=== PATIENT | female | born 1950 | race Caucasian/White ===

== ENCOUNTER 2017-06-03 09:19 | Emergency (ER) | payer MEDICARE, OTHER ==
[2017-06-03] MEDS: morphine 4 MG/ML VIAL IV (10:15)
[2017-06-03] MEDS: ONDANSETRON 4 MG INJ IV (10:15)
[2017-06-03 10:52] LABS: ADD MAN DIFF? NO
[2017-06-03 11:11] LABS: ABNORMAL IP MESSAGE 1; BASOPHILS % 0.4 % (0.0-2.0); EOSINOPHILS # 0.1 10^3/ul (0.0-0.5); EOSINOPHILS % 0.7 % (0.0-7.0); HEMATOCRIT 32.1 % (37.0-47.0); HEMOGLOBIN 9.9 g/dl (12.0-16.0); LYMPHOCYTES # 0.3 10^3/ul (0.8-2.9); LYMPHOCYTES % 2.5 % (15.0-51.0); MEAN CORPUSCULAR HGB CONC 30.8 g/dl (32.0-37.0); MEAN CORPUSCULAR VOLUME 90.7 fl (82.0-101.0); MEAN PLATELET VOLUME 11.9 fl (7.4-10.4); MONOCYTE # 0.6 10^3/ul (0.3-0.9); MONOCYTES % 5.5 % (0.0-11.0); NEUTROPHIL # 9.6 10^3/ul (1.6-7.5); NEUTROPHILS % 90.4 % (39.0-77.0); PLATELET COUNT 289 10^3/UL (140-415); RED BLOOD COUNT 3.54 10^6/ul (4.20-5.40); RED CELL DISTRIBUTION WIDTH 19.2 % (11.5-14.5)
[2017-06-03 11:11] LABS: WHITE BLOOD COUNT 10.6 10^3/ul (4.8-10.8)
[2017-06-03 11:12] LABS: POSITIVE DIFF @See below
[2017-06-03 11:14] LABS: INR 1.24; PROTIME 15.8 Sec (11.9-14.9); PT RATIO 1.2
[2017-06-03 11:15] LABS: ALANINE AMINOTRANSFERASE 13 IU/L (13-69); ALBUMIN 4.6 g/dl (3.3-4.9); ALBUMIN/GLOBULIN RATIO 1.04; ALKALINE PHOSPHATASE 170 IU/L (42-121); ANION GAP 21 (8-16); BLOOD UREA NITROGEN 32 mg/dl (7-20); CALCIUM 9.5 mg/dl (8.4-10.2); CARBON DIOXIDE 30 mmol/L (21-31); CHLORIDE 98 mmol/L (97-110); CREATININE 4.52 mg/dl (0.44-1.00); GLUCOSE 142 mg/dl (70-220); PARTIAL THROMBOPLASTIN TIME 31.6 Sec (25.0-35.0); POTASSIUM 4.8 mmol/L (3.5-5.1); SODIUM 144 mmol/L (135-144)
[2017-06-03 11:21] LABS: ASPARTATE AMINO TRANSFERASE 17 IU/L (15-46)
== END 2017-06-03 15:20 | disposition home or self-care (01) ==
LOC: E/R 09:19
DX: J18.9 Pneumonia, unspecified organism (principal); I12.0 Hypertensive chronic kidney disease with stage 5 chronic kidney disease or end stage renal disease; N18.6 End stage renal disease; R51 Headache; Z99.2 Dependence on renal dialysis
CPT/HCPCS: 36415; 70450; 71045; 71250; 80053; 84484; 85025; 85610; 85730; 93005; 96374; 96375; 99285-25

== ENCOUNTER 2017-07-03 11:50 | Inpatient (IN) | payer MEDICARE, OTHER ==
[2017-07-03] MEDS: ONDANSETRON 4 MG INJ IV (12:43)
[2017-07-03] MEDS: morphine 2 MG INJ IV (12:44)
[2017-07-03 12:56] LABS: ADD MAN DIFF? NO
[2017-07-03 13:02] LABS: ABNORMAL IP MESSAGE 1; BASOPHILS % 0.5 % (0.0-2.0); EOSINOPHILS # 0.2 10^3/ul (0.0-0.5); EOSINOPHILS % 2.1 % (0.0-7.0); HEMATOCRIT 30.6 % (37.0-47.0); HEMOGLOBIN 9.3 g/dl (12.0-16.0); LYMPHOCYTES # 0.4 10^3/ul (0.8-2.9); LYMPHOCYTES % 4.7 % (15.0-51.0); MEAN CORPUSCULAR HGB CONC 30.4 g/dl (32.0-37.0); MEAN CORPUSCULAR VOLUME 88.7 fl (82.0-101.0); MEAN PLATELET VOLUME 11.7 fl (7.4-10.4); MONOCYTE # 0.6 10^3/ul (0.3-0.9); MONOCYTES % 7.2 % (0.0-11.0); NEUTROPHIL # 6.9 10^3/ul (1.6-7.5); NEUTROPHILS % 85.3 % (39.0-77.0); PLATELET COUNT 291 10^3/UL (140-415); POSITIVE DIFF @See below; RED BLOOD COUNT 3.45 10^6/ul (4.20-5.40); RED CELL DISTRIBUTION WIDTH 17.8 % (11.5-14.5)
[2017-07-03 13:02] LABS: WHITE BLOOD COUNT 8.1 10^3/ul (4.8-10.8)
[2017-07-03 13:18] LABS: ALANINE AMINOTRANSFERASE 17 IU/L (13-69); ALBUMIN 3.9 g/dl (3.3-4.9); ALBUMIN/GLOBULIN RATIO 0.88; ALKALINE PHOSPHATASE 111 IU/L (42-121); ANION GAP 28 (8-16); ASPARTATE AMINO TRANSFERASE 13 IU/L (15-46); BLOOD UREA NITROGEN 53 mg/dl (7-20); CALCIUM 8.8 mg/dl (8.4-10.2); CARBON DIOXIDE 17 mmol/L (21-31); CHLORIDE 101 mmol/L (97-110); CREATININE 6.66 mg/dl (0.44-1.00); GLUCOSE 148 mg/dl (70-220); LIPASE 46 U/L (23-300); POTASSIUM 5.1 mmol/L (3.5-5.1); SODIUM 141 mmol/L (135-144); TOTAL PROTEIN 8.3 g/dl (6.1-8.1)
[2017-07-03 13:31] LABS: INR 1.54; PROTIME 18.8 Sec (11.9-14.9); PT RATIO 1.5
[2017-07-03 13:32] LABS: PARTIAL THROMBOPLASTIN TIME 32.1 Sec (25.0-35.0); TROPONIN-I 0.029 ng/ml (0.00-0.12)
[2017-07-03 14:37] LABS: LACTIC ACID 1.3 mmol/L (0.5-2.0)
[2017-07-03] MEDS: CEFEPIME 1GM/50 ML (PMX) 50 ML IVPB (14:54)
[2017-07-03] MEDS: VANCOMYCIN 1 GM (PMX) 250 ML IVPB (15:30)
[2017-07-03] MEDS ORDERED: NA PHOSPHATE/BIPHOS 133 ML ENEMA PR (19:00)
[2017-07-03] MEDS ORDERED: ONDANSETRON 4 MG TAB PO (19:00)
[2017-07-03] MEDS ORDERED: DOCUSATE SODIUM 100 MG CAP PO (19:00)
[2017-07-03] MEDS: LACTULOSE 30ML CUP PO (19:22)
[2017-07-03] MEDS: NA PHOSPHATE/BIPHOS 133 ML ENEMA PR (19:22)
[2017-07-03 20:00] LABS: LACTIC ACID 1.2 mmol/L (0.5-2.0)
[2017-07-03] MEDS: ALBUTEROL/IPRATROPIUM (NEB) 3 ML AMP NEB (20:24)
[2017-07-03] MEDS: AZITHROMYCIN 500MG/NS (PMX) 250 ML IV (21:40)
[2017-07-03] MEDS: NIFEdipine (XL) 60 MG TAB PO (21:40)
[2017-07-03] MEDS: DOCUSATE SODIUM 100 MG CAP PO (21:40)
[2017-07-03] MEDS: FAMOTIDINE 20 MG TAB PO (21:45)
[2017-07-03] MEDS: NACL 0.9% 3 ML SYG IV (21:46)
[2017-07-03] MEDS: HYDROCODONE/APAP (5/325) TAB PO (21:46)
[2017-07-04 00:41] LABS: ADD MAN DIFF? NO
[2017-07-04 00:42] LABS: WHITE BLOOD COUNT 9.3 10^3/ul (4.8-10.8)
[2017-07-04 00:42] LABS: BASOPHILS % 0.2 % (0.0-2.0); EOSINOPHILS # 0.2 10^3/ul (0.0-0.5); EOSINOPHILS % 2.2 % (0.0-7.0); HEMATOCRIT 27.7 % (37.0-47.0); HEMOGLOBIN 8.5 g/dl (12.0-16.0); LYMPHOCYTES # 0.6 10^3/ul (0.8-2.9); LYMPHOCYTES % 6.7 % (15.0-51.0); MEAN CORPUSCULAR HEMOGLOBIN 27.6 pg (29.0-33.0); MEAN CORPUSCULAR HGB CONC 30.7 g/dl (32.0-37.0); MEAN CORPUSCULAR VOLUME 89.9 fl (82.0-101.0); MEAN PLATELET VOLUME 11.4 fl (7.4-10.4); MONOCYTE # 0.3 10^3/ul (0.3-0.9); MONOCYTES % 3.3 % (0.0-11.0); NEUTROPHILS % 86.5 % (39.0-77.0); PLATELET COUNT 290 10^3/UL (140-415); RED BLOOD COUNT 3.08 10^6/ul (4.20-5.40); RED CELL DISTRIBUTION WIDTH 17.9 % (11.5-14.5)
[2017-07-04 00:45] LABS: AADO2 Arterial 304.3 mmHg (7.0-24.0); Allen Test ACCEPTAB; Arterial Base Excess -10.3 mmol/L (-3.0-3); Arterial COHb 0.8 % (0.0-3.0); Arterial Fraction of Oxyhgb 97.9 % (93.0-99.0); Arterial HCO3 15.7 mmol/L (22.0-26.0); Arterial MetHb 0.3 % (0.0-1.5); Arterial Total Hemglobin 8.9 g/dl (12.0-18.0); Arterial pCO2 35.4 mmhg (35-45); MODE VENT - AC; Site Right Radial
[2017-07-04 01:04] LABS: ANION GAP 24 (8-16); BLOOD UREA NITROGEN 55 mg/dl (7-20); CARBON DIOXIDE 18 mmol/L (21-31); CHLORIDE 101 mmol/L (97-110); CREATININE 7.08 mg/dl (0.44-1.00); GLUCOSE 159 mg/dl (70-220); SODIUM 138 mmol/L (135-144)
[2017-07-04 01:06] LABS: MAGNESIUM 2.8 mg/dl (1.7-2.5); PHOSPHORUS 8.6 mg/dl (2.5-4.9)
[2017-07-04 01:11] LABS: LACTIC ACID 4.9 mmol/L (0.5-2.0)
[2017-07-04] MEDS: ALBUTEROL/IPRATROPIUM (NEB) 3 ML AMP NEB ×5 (01:38→14:19)
[2017-07-04 03:26] LABS: ADD MAN DIFF? NO
[2017-07-04] MEDS: LORAZEPAM 2 MG INJ IV ×2 (03:44→07:52)
[2017-07-04 03:48] LABS: INR 1.84; PROTIME 21.7 Sec (11.9-14.9); PT RATIO 1.7
[2017-07-04 03:49] LABS: WHITE BLOOD COUNT 11.3 10^3/ul (4.8-10.8)
[2017-07-04 03:49] LABS: ABNORMAL IP MESSAGE 1; BASOPHILS % 0.2 % (0.0-2.0); EOSINOPHILS % 0.2 % (0.0-7.0); HEMATOCRIT 26.3 % (37.0-47.0); HEMOGLOBIN 8.4 g/dl (12.0-16.0); LYMPHOCYTES # 0.2 10^3/ul (0.8-2.9); MEAN CORPUSCULAR HEMOGLOBIN 27.8 pg (29.0-33.0); MEAN CORPUSCULAR HGB CONC 31.9 g/dl (32.0-37.0); MEAN CORPUSCULAR VOLUME 87.1 fl (82.0-101.0); MEAN PLATELET VOLUME 11.8 fl (7.4-10.4); MONOCYTE # 0.8 10^3/ul (0.3-0.9); MONOCYTES % 6.7 % (0.0-11.0); NEUTROPHIL # 10.2 10^3/ul (1.6-7.5); NEUTROPHILS % 90.5 % (39.0-77.0); PLATELET COUNT 265 10^3/UL (140-415); RED BLOOD COUNT 3.02 10^6/ul (4.20-5.40); RED CELL DISTRIBUTION WIDTH 17.8 % (11.5-14.5)
[2017-07-04 03:51] LABS: POSITIVE DIFF @See below
[2017-07-04 03:53] LABS: ALANINE AMINOTRANSFERASE 17 IU/L (13-69); ALBUMIN 3.5 g/dl (3.3-4.9); ALBUMIN/GLOBULIN RATIO 0.89; ALKALINE PHOSPHATASE 126 IU/L (42-121); ANION GAP 28 (8-16); ASPARTATE AMINO TRANSFERASE 17 IU/L (15-46); BLOOD UREA NITROGEN 57 mg/dl (7-20); CALCIUM 8.6 mg/dl (8.4-10.2); CARBON DIOXIDE 16 mmol/L (21-31); CHLORIDE 102 mmol/L (97-110); CREATININE 7.01 mg/dl (0.44-1.00); GLUCOSE 137 mg/dl (70-220); POTASSIUM 5.3 mmol/L (3.5-5.1); SODIUM 141 mmol/L (135-144); TOTAL PROTEIN 7.4 g/dl (6.1-8.1)
[2017-07-04] MEDS ORDERED: PANTOPRAZOLE (EC) 40 MG TAB PO (07:05)
[2017-07-04] MEDS: LEVETIRACETAM 500 MG (PMX) 100 ML IVPB ×2 (08:00→15:10)
[2017-07-04] MEDS: NA POLYST SULFON 15 GM/60 ML BTL PO (09:00)
[2017-07-04] MEDS: MIDAZOLAM (DRIP) 50 mg/50 mL 50 ML IV ×2 (09:20→16:56)
[2017-07-04] MEDS: ASPIRIN 81 MG TAB PO (09:20)
[2017-07-04] MEDS: SEVELAMER CARBONATE 2.4 GM PKT PO ×3 (09:20→18:40)
[2017-07-04] MEDS: DOCUSATE SODIUM 10 MG/ML (10ML CUP) NGT ×2 (09:31→21:13)
[2017-07-04 10:45] LABS: AADO2 Arterial 167.9 mmHg (7.0-24.0); Arterial Base Excess -6.7 mmol/L (-3.0-3); Arterial Blood Gas Oxygen Sat 94.4 mmHG (95.0-98.0); Arterial COHb 1.2 % (0.0-3.0); Arterial HCO3 17.5 mmol/L (22.0-26.0); Arterial MetHb 0.3 % (0.0-1.5); Arterial Total Hemglobin 8.4 g/dl (12.0-18.0); Arterial pCO2 29.9 mmhg (35-45); MODE VENT - AC; Site Right Brachial
[2017-07-04] MEDS ORDERED: DIVALPROEX (EC) 500 MG TAB PO (13:00)
[2017-07-04] MEDS: VALPROIC ACID LIQUID CUP 250 MG/5 ML CUP GTB ×2 (13:06→21:13)
[2017-07-04] MEDS: ACETAMINOPHEN 325 MG TAB PO (13:07)
[2017-07-04] MEDS: CEFEPIME 1GM/50 ML (PMX) 50 ML IVPB (13:08)
[2017-07-04] MEDS: ALBUTEROL HFA 8 GM INHALER INH ×2 (17:00→21:43)
[2017-07-04] MEDS: PHENYTOIN 1,000 MG in SOD CHLORIDE 0.9% 100 ML IV (18:35)
[2017-07-04] MEDS: NA BICARBONATE 8.4% 50 ML SYG IV (19:22)
[2017-07-04] MEDS: ALBUTEROL 0.083% (NEB) 2.5 MG/3 ML AMP HHN (19:29)
[2017-07-04 19:53] LABS: HEPATITIS B SURFACE ANTIGEN NEGATIVE (NEGATIVE)
[2017-07-04 19:54] LABS: ALANINE AMINOTRANSFERASE 18 IU/L (13-69); ALBUMIN/GLOBULIN RATIO 0.83; ALKALINE PHOSPHATASE 103 IU/L (42-121); ANION GAP 25 (8-16); ASPARTATE AMINO TRANSFERASE 20 IU/L (15-46); BLOOD UREA NITROGEN 63 mg/dl (7-20); CALCIUM 10.5 mg/dl (8.4-10.2); CARBON DIOXIDE 17 mmol/L (21-31); CHLORIDE 103 mmol/L (97-110); CREATININE 7.63 mg/dl (0.44-1.00); GLUCOSE 143 mg/dl (70-220); POTASSIUM 5.2 mmol/L (3.5-5.1); SODIUM 140 mmol/L (135-144); TOTAL PROTEIN 6.6 g/dl (6.1-8.1)
[2017-07-04 21:10] LABS: AADO2 Arterial 333.9 mmHg (7.0-24.0); Allen Test ACCEPTAB; Arterial Blood Gas Oxygen Sat 98.6 mmHG (95.0-98.0); Arterial COHb 0.3 % (0.0-3.0); Arterial Fraction of Oxyhgb 98.2 % (93.0-99.0); Arterial HCO3 17.9 mmol/L (22.0-26.0); Arterial MetHb 0.1 % (0.0-1.5); Arterial Total Hemglobin 8.3 g/dl (12.0-18.0); Arterial pCO2 28.9 mmhg (35-45); MODE VENT - AC; Site Right Radial
[2017-07-04] MEDS: LEVETIRACETAM 1000 MG (PMX) 100 ML IVPB (21:12)
[2017-07-04] MEDS: MEROPENEM 1 GM/50ML(PMX) 50 ML IVPB (21:12)
[2017-07-04] MEDS: AZITHROMYCIN 500MG/NS (PMX) 250 ML IV (21:12)
[2017-07-04] MEDS: PHENYTOIN (100 MG/4 ML) CUP NGT (21:13)
[2017-07-05] MEDS: ACETAMINOPHEN 325 MG TAB PO ×2 (00:30→06:00)
[2017-07-05] MEDS: ALBUTEROL HFA 8 GM INHALER INH ×6 (01:48→21:15)
[2017-07-05] MEDS: MIDAZOLAM (DRIP) 50 mg/50 mL 50 ML IV ×5 (06:00→23:59)
[2017-07-05 06:06] LABS: ADD MAN DIFF? NO
[2017-07-05 06:27] LABS: ABNORMAL IP MESSAGE 1; BASOPHILS % 0.1 % (0.0-2.0); HEMATOCRIT 25.2 % (37.0-47.0); HEMOGLOBIN 8.2 g/dl (12.0-16.0); LYMPHOCYTES # 0.3 10^3/ul (0.8-2.9); LYMPHOCYTES % 1.9 % (15.0-51.0); MEAN CORPUSCULAR HEMOGLOBIN 27.2 pg (29.0-33.0); MEAN CORPUSCULAR HGB CONC 32.5 g/dl (32.0-37.0); MEAN CORPUSCULAR VOLUME 83.7 fl (82.0-101.0); MEAN PLATELET VOLUME 11.9 fl (7.4-10.4); MONOCYTE # 0.9 10^3/ul (0.3-0.9); MONOCYTES % 5.7 % (0.0-11.0); NEUTROPHIL # 14.3 10^3/ul (1.6-7.5); NEUTROPHILS % 91.7 % (39.0-77.0); PLATELET COUNT 309 10^3/UL (140-415); RED BLOOD COUNT 3.01 10^6/ul (4.20-5.40); RED CELL DISTRIBUTION WIDTH 17.7 % (11.5-14.5)
[2017-07-05 06:27] LABS: WHITE BLOOD COUNT 15.6 10^3/ul (4.8-10.8)
[2017-07-05 06:50] LABS: POSITIVE DIFF @See below
[2017-07-05 06:54] LABS: MAGNESIUM 2.7 mg/dl (1.7-2.5)
[2017-07-05 07:07] LABS: FREE THYROXINE INDEX (Calc) 3.34 ug/ml (0.65-3.89); T3 UPTAKE 49.8 % (23.5-40.5); T4 (THYROXINE) 6.7 ug/dl (5.5-11.0)
[2017-07-05 07:08] LABS: ALANINE AMINOTRANSFERASE 18 IU/L (13-69); ALBUMIN 3.3 g/dl (3.3-4.9); ALBUMIN/GLOBULIN RATIO 0.97; ALKALINE PHOSPHATASE 112 IU/L (42-121); ANION GAP 26 (8-16); ASPARTATE AMINO TRANSFERASE 17 IU/L (15-46); BLOOD UREA NITROGEN 68 mg/dl (7-20); CALCIUM 8.4 mg/dl (8.4-10.2); CARBON DIOXIDE 20 mmol/L (21-31); CHLORIDE 99 mmol/L (97-110); CREATININE 8.13 mg/dl (0.44-1.00); GLUCOSE 336 mg/dl (70-220); POTASSIUM 5.9 mmol/L (3.5-5.1); SODIUM 139 mmol/L (135-144); TOTAL PROTEIN 6.7 g/dl (6.1-8.1)
[2017-07-05 07:12] LABS: LACTIC ACID 2.5 mmol/L (0.5-2.0)
[2017-07-05 07:20] LABS: THYROID STIMULATING HORMONE 0.812 MIU/L (0.465-4.680)
[2017-07-05 08:17] LABS: ERYTHROCYTE SEDIMENTATION RATE 42 mm/Hr (0-30)
[2017-07-05] MEDS: SEVELAMER CARBONATE 2.4 GM PKT PO ×3 (08:56→18:21)
[2017-07-05] MEDS: VALPROIC ACID LIQUID CUP 250 MG/5 ML CUP GTB ×3 (08:57→21:05)
[2017-07-05] MEDS: PHENYTOIN (100 MG/4 ML) CUP NGT ×3 (08:57→21:04)
[2017-07-05] MEDS: DOCUSATE SODIUM 10 MG/ML (10ML CUP) NGT ×2 (08:57→21:04)
[2017-07-05] MEDS: ASPIRIN 81 MG TAB PO (08:59)
[2017-07-05] MEDS: FAMOTIDINE 20 MG TAB NGT (08:59)
[2017-07-05] MEDS: ACCU-CHEK XX ×4 (09:00→21:00)
[2017-07-05] MEDS: LEVETIRACETAM 1000 MG (PMX) 100 ML IVPB (09:00)
[2017-07-05] MEDS: AMLODIPINE 2.5 MG TAB NGT (09:00)
[2017-07-05] MEDS: LEVETIRACETAM 1500 MG (PMX) 100 ML IVPB ×2 (11:00→21:06)
[2017-07-05] MEDS: DIGOXIN 500 MCG INJ IV (12:36)
[2017-07-05 12:40] LABS: TROPONIN-I 0.128 ng/ml (0.00-0.12)
[2017-07-05] MEDS: LEVETIRACETAM 500 MG (PMX) 100 ML IVPB (14:01)
[2017-07-05] MEDS: CEFEPIME 1GM/50 ML (PMX) 50 ML IVPB (15:01)
[2017-07-05] MEDS ORDERED: GLUCAGON 1 MG INJ IM (16:30)
[2017-07-05] MEDS ORDERED: GLUCOSE GEL 15 GRAM TUBE PO ×2 (16:30)
[2017-07-05] MEDS ORDERED: GLUCOSE GEL 15 GRAM TUBE BUCCAL (16:30)
[2017-07-05] MEDS: LINAGLIPTIN 5 MG TABLET PO (18:21)
[2017-07-05] MEDS: INSULIN ASPART [NOVOLOG] 3 ML PEN SC ×2 (18:25→21:00)
[2017-07-05] MEDS: AZITHROMYCIN 500MG/NS (PMX) 250 ML IV (20:00)
[2017-07-05] MEDS: INSULIN GLARGINE [LANtus] 3 ML PEN SC (20:00)
[2017-07-05] MEDS: LORAZEPAM 0.5 MG TAB PO (23:55)
[2017-07-06] MEDS: INSULIN ASPART [NOVOLOG] 3 ML PEN SC ×6 (01:00→20:36)
[2017-07-06] MEDS: ALBUTEROL HFA 8 GM INHALER INH ×3 (01:00→08:33)
[2017-07-06] MEDS: ACCU-CHEK XX ×6 (01:42→20:27)
[2017-07-06] MEDS: HEPARIN 1000 UNITS/ML 10 ML INJ CATHETER (03:12)
[2017-07-06 03:33] LABS: ADD MAN DIFF? NO
[2017-07-06] MEDS: ALBUMIN HUMAN 25% 100 ML IV (03:57)
[2017-07-06 04:00] LABS: ANION GAP 21 (8-16); BLOOD UREA NITROGEN 36 mg/dl (7-20); CALCIUM 8.2 mg/dl (8.4-10.2); CARBON DIOXIDE 25 mmol/L (21-31); CHLORIDE 98 mmol/L (97-110); CREATININE 3.87 mg/dl (0.44-1.00); GLUCOSE 114 mg/dl (70-220); MAGNESIUM 2.2 mg/dl (1.7-2.5); PHOSPHORUS 3.9 mg/dl (2.5-4.9); SODIUM 140 mmol/L (135-144)
[2017-07-06 04:04] LABS: ABNORMAL IP MESSAGE 1; BASOPHILS % 0.2 % (0.0-2.0); EOSINOPHILS # 0.1 10^3/ul (0.0-0.5); EOSINOPHILS % 0.5 % (0.0-7.0); HEMATOCRIT 25.1 % (37.0-47.0); HEMOGLOBIN 8.6 g/dl (12.0-16.0); LYMPHOCYTES # 0.4 10^3/ul (0.8-2.9); LYMPHOCYTES % 2.3 % (15.0-51.0); MEAN CORPUSCULAR HEMOGLOBIN 27.8 pg (29.0-33.0); MEAN CORPUSCULAR HGB CONC 34.3 g/dl (32.0-37.0); MEAN CORPUSCULAR VOLUME 81.2 fl (82.0-101.0); MEAN PLATELET VOLUME 11.9 fl (7.4-10.4); MONOCYTE # 0.7 10^3/ul (0.3-0.9); NEUTROPHIL # 15.5 10^3/ul (1.6-7.5); NEUTROPHILS % 92.6 % (39.0-77.0); PLATELET COUNT 249 10^3/UL (140-415); RED BLOOD COUNT 3.09 10^6/ul (4.20-5.40); RED CELL DISTRIBUTION WIDTH 17.6 % (11.5-14.5)
[2017-07-06 04:04] LABS: WHITE BLOOD COUNT 16.7 10^3/ul (4.8-10.8)
[2017-07-06 04:08] LABS: POSITIVE DIFF @See below
[2017-07-06] MEDS: MIDAZOLAM (DRIP) 50 mg/50 mL 50 ML IV ×4 (05:39→20:24)
[2017-07-06 06:19] LABS: HEPATITIS B SURFACE ANTIBODY POSITIVE (NEGATIVE)
[2017-07-06] MEDS ORDERED: EPINEPHrine 0.1 MG/ML SYG (07:00)
[2017-07-06] MEDS ORDERED: CA CHLORIDE 10% 10 ML SYRINGE (07:00)
[2017-07-06 08:25] LABS: AADO2 Arterial 103.4 mmHg (7.0-24.0); Arterial Base Excess 0.7 mmol/L (-3.0-3); Arterial Blood Gas Oxygen Sat 94.9 mmHG (95.0-98.0); Arterial COHb 1.2 % (0.0-3.0); Arterial Fraction of Oxyhgb 93.5 % (93.0-99.0); Arterial HCO3 22.7 mmol/L (22.0-26.0); Arterial MetHb 0.3 % (0.0-1.5); Arterial Total Hemglobin 8.7 g/dl (12.0-18.0); Arterial pCO2 27.1 mmhg (35-45); MODE VENT - AC; Site Right Brachial
[2017-07-06 08:53] LABS: PHENYTOIN (DILANTIN) 5.9 ug/ml (10.0-20.0)
[2017-07-06] MEDS: AMLODIPINE 2.5 MG TAB NGT (09:00)
[2017-07-06] MEDS: FAMOTIDINE 20 MG TAB NGT (09:23)
[2017-07-06] MEDS: SEVELAMER CARBONATE 2.4 GM PKT PO ×3 (09:23→17:03)
[2017-07-06] MEDS: ASPIRIN 81 MG TAB PO (09:23)
[2017-07-06] MEDS: LINAGLIPTIN 5 MG TABLET PO (09:23)
[2017-07-06] MEDS: DOCUSATE SODIUM 10 MG/ML (10ML CUP) NGT ×2 (09:25→20:08)
[2017-07-06] MEDS: PHENYTOIN (100 MG/4 ML) CUP NGT ×4 (09:25→20:08)
[2017-07-06] MEDS: VALPROIC ACID LIQUID CUP 250 MG/5 ML CUP GTB ×3 (09:25→20:07)
[2017-07-06] MEDS: LEVETIRACETAM 1500 MG (PMX) 100 ML IVPB ×2 (09:37→20:08)
[2017-07-06] MEDS: CEFEPIME 1GM/50 ML (PMX) 50 ML IVPB (15:12)
[2017-07-06] MEDS: INSULIN GLARGINE [LANtus] 3 ML PEN SC (20:06)
[2017-07-06] MEDS: HEPARIN 5,000 UNIT/0.5 ML VIAL SC (20:36)
[2017-07-07] MEDS: INSULIN ASPART [NOVOLOG] 3 ML PEN SC ×6 (01:00→21:00)
[2017-07-07] MEDS: ACCU-CHEK XX ×6 (01:00→21:00)
[2017-07-07] MEDS: MIDAZOLAM (DRIP) 50 mg/50 mL 50 ML IV ×2 (01:18→05:32)
[2017-07-07] MEDS: DEXTROSE 50% 50 ML SYRINGE IV ×3 (05:11→11:58)
[2017-07-07] MEDS: LINAGLIPTIN 5 MG TABLET PO (09:00)
[2017-07-07] MEDS: LEVETIRACETAM 1500 MG (PMX) 100 ML IVPB ×2 (09:10→21:36)
[2017-07-07] MEDS: FAMOTIDINE 20 MG TAB NGT (09:21)
[2017-07-07] MEDS: ASPIRIN 81 MG TAB PO (09:22)
[2017-07-07] MEDS: DOCUSATE SODIUM 10 MG/ML (10ML CUP) NGT ×2 (09:22→21:29)
[2017-07-07] MEDS: SEVELAMER CARBONATE 2.4 GM PKT PO ×3 (09:22→17:16)
[2017-07-07] MEDS: VALPROIC ACID LIQUID CUP 250 MG/5 ML CUP GTB ×3 (09:22→23:30)
[2017-07-07] MEDS: PHENYTOIN (100 MG/4 ML) CUP NGT ×4 (09:23→21:29)
[2017-07-07] MEDS: HEPARIN 5,000 UNIT/0.5 ML VIAL SC ×2 (09:25→21:31)
[2017-07-07] MEDS: ACETAMINOPHEN 325 MG TAB PO (09:35)
[2017-07-07] MEDS: METOCLOPRAMIDE 10 MG INJ IV ×2 (12:01→17:16)
[2017-07-07] MEDS: CEFEPIME 1GM/50 ML (PMX) 50 ML IVPB (13:50)
[2017-07-07] MEDS: INSULIN GLARGINE [LANtus] 3 ML PEN SC (20:00)
[2017-07-08] MEDS: METOCLOPRAMIDE 10 MG INJ IV ×4 (00:34→17:13)
[2017-07-08] MEDS: INSULIN ASPART [NOVOLOG] 3 ML PEN SC ×6 (01:00→21:00)
[2017-07-08] MEDS: ACCU-CHEK XX ×6 (01:00→21:00)
[2017-07-08] MEDS: LORAZEPAM 2 MG INJ IV (07:52)
[2017-07-08 08:57] LABS: PHENYTOIN (DILANTIN) 4.8 ug/ml (10.0-20.0)
[2017-07-08] MEDS: LEVETIRACETAM 1500 MG (PMX) 100 ML IVPB ×2 (09:09→21:48)
[2017-07-08] MEDS: DOCUSATE SODIUM 10 MG/ML (10ML CUP) NGT ×2 (09:14→21:44)
[2017-07-08] MEDS: PHENYTOIN (100 MG/4 ML) CUP NGT ×4 (09:15→21:44)
[2017-07-08] MEDS: VALPROIC ACID LIQUID CUP 250 MG/5 ML CUP GTB ×2 (09:15→12:57)
[2017-07-08] MEDS: SEVELAMER CARBONATE 2.4 GM PKT PO ×3 (09:15→17:13)
[2017-07-08] MEDS: FAMOTIDINE 20 MG TAB NGT (09:16)
[2017-07-08] MEDS: LINAGLIPTIN 5 MG TABLET PO (09:16)
[2017-07-08] MEDS: ASPIRIN 81 MG TAB PO (09:16)
[2017-07-08] MEDS: HEPARIN 5,000 UNIT/0.5 ML VIAL SC ×2 (09:18→21:45)
[2017-07-08 10:21] LABS: ADD MAN DIFF? NO
[2017-07-08 10:22] LABS: WHITE BLOOD COUNT 11.4 10^3/ul (4.8-10.8)
[2017-07-08 10:22] LABS: ABNORMAL IP MESSAGE 1; BASOPHILS % 0.3 % (0.0-2.0); EOSINOPHILS # 0.2 10^3/ul (0.0-0.5); EOSINOPHILS % 2.1 % (0.0-7.0); HEMATOCRIT 23.8 % (37.0-47.0); HEMOGLOBIN 7.5 g/dl (12.0-16.0); LYMPHOCYTES # 0.2 10^3/ul (0.8-2.9); LYMPHOCYTES % 2.1 % (15.0-51.0); MEAN CORPUSCULAR HEMOGLOBIN 26.9 pg (29.0-33.0); MEAN CORPUSCULAR HGB CONC 31.5 g/dl (32.0-37.0); MEAN CORPUSCULAR VOLUME 85.3 fl (82.0-101.0); MEAN PLATELET VOLUME 12.4 fl (7.4-10.4); MONOCYTE # 0.7 10^3/ul (0.3-0.9); MONOCYTES % 6.3 % (0.0-11.0); NEUTROPHIL # 9.8 10^3/ul (1.6-7.5); NEUTROPHILS % 86.5 % (39.0-77.0); PLATELET COUNT 221 10^3/UL (140-415); POSITIVE DIFF @See below; RED BLOOD COUNT 2.79 10^6/ul (4.20-5.40)
[2017-07-08 10:41] LABS: ALANINE AMINOTRANSFERASE 14 IU/L (13-69); ALBUMIN 2.8 g/dl (3.3-4.9); ALKALINE PHOSPHATASE 114 IU/L (42-121); ANION GAP 23 (8-16); ASPARTATE AMINO TRANSFERASE 14 IU/L (15-46); BLOOD UREA NITROGEN 69 mg/dl (7-20); CALCIUM 8.2 mg/dl (8.4-10.2); CARBON DIOXIDE 22 mmol/L (21-31); CHLORIDE 98 mmol/L (97-110); CREATININE 7.06 mg/dl (0.44-1.00); GLUCOSE 103 mg/dl (70-220); POTASSIUM 5.5 mmol/L (3.5-5.1); SODIUM 137 mmol/L (135-144); TOTAL PROTEIN 6.3 g/dl (6.1-8.1)
[2017-07-08 14:23] LABS: IMMEDIATE SPIN CROSSMATCH 1 2
[2017-07-08] MEDS: CEFEPIME 1GM/50 ML (PMX) 50 ML IVPB (17:12)
[2017-07-08] MEDS: HEPARIN 1000 UNITS/ML 10 ML INJ CATHETER (17:59)
[2017-07-08] MEDS: INSULIN GLARGINE [LANtus] 3 ML PEN SC (21:50)
[2017-07-09] MEDS: METOCLOPRAMIDE 10 MG INJ IV ×4 (00:41→18:01)
[2017-07-09] MEDS: INSULIN ASPART [NOVOLOG] 3 ML PEN SC ×6 (01:00→20:14)
[2017-07-09] MEDS: ACCU-CHEK XX ×6 (01:00→20:14)
[2017-07-09] MEDS: VALPROIC ACID LIQUID CUP 250 MG/5 ML CUP GTB ×4 (01:48→21:00)
[2017-07-09] MEDS: PE/SHARK OIL/MO/PETROL 30 GM OINT PR (04:14)
[2017-07-09 05:23] LABS: ABNORMAL IP MESSAGE 1; ADD MAN DIFF? NO; BASOPHILS % 0.3 % (0.0-2.0); EOSINOPHILS # 0.2 10^3/ul (0.0-0.5); HEMATOCRIT 25.3 % (37.0-47.0); HEMOGLOBIN 8.2 g/dl (12.0-16.0); LYMPHOCYTES # 0.4 10^3/ul (0.8-2.9); LYMPHOCYTES % 2.9 % (15.0-51.0); MEAN CORPUSCULAR HGB CONC 32.4 g/dl (32.0-37.0); MEAN CORPUSCULAR VOLUME 83.2 fl (82.0-101.0); MEAN PLATELET VOLUME 12.8 fl (7.4-10.4); MONOCYTE # 0.8 10^3/ul (0.3-0.9); MONOCYTES % 6.5 % (0.0-11.0); NEUTROPHIL # 10.5 10^3/ul (1.6-7.5); PLATELET COUNT 212 10^3/UL (140-415); RED BLOOD COUNT 3.04 10^6/ul (4.20-5.40)
[2017-07-09 05:23] LABS: WHITE BLOOD COUNT 11.9 10^3/ul (4.8-10.8)
[2017-07-09 05:37] LABS: POSITIVE DIFF @See below
[2017-07-09 05:49] LABS: ALANINE AMINOTRANSFERASE 15 IU/L (13-69); ALBUMIN 2.7 g/dl (3.3-4.9); ALBUMIN/GLOBULIN RATIO 0.75; ALKALINE PHOSPHATASE 129 IU/L (42-121); ANION GAP 18 (8-16); ASPARTATE AMINO TRANSFERASE 15 IU/L (15-46); BLOOD UREA NITROGEN 41 mg/dl (7-20); CALCIUM 8.3 mg/dl (8.4-10.2); CARBON DIOXIDE 26 mmol/L (21-31); CHLORIDE 98 mmol/L (97-110); GLUCOSE 110 mg/dl (70-220); POTASSIUM 4.3 mmol/L (3.5-5.1); SODIUM 138 mmol/L (135-144); TOTAL PROTEIN 6.3 g/dl (6.1-8.1)
[2017-07-09 05:50] LABS: MAGNESIUM 2.4 mg/dl (1.7-2.5)
[2017-07-09 05:50] LABS: PHOSPHORUS 4.2 mg/dl (2.5-4.9)
[2017-07-09] MEDS: SEVELAMER CARBONATE 2.4 GM PKT PO ×3 (10:05→18:01)
[2017-07-09] MEDS: ASPIRIN 81 MG TAB PO (10:05)
[2017-07-09] MEDS: PHENYTOIN (100 MG/4 ML) CUP NGT ×4 (10:05→20:13)
[2017-07-09] MEDS: FAMOTIDINE 20 MG TAB NGT (10:05)
[2017-07-09] MEDS: LINAGLIPTIN 5 MG TABLET PO (10:05)
[2017-07-09] MEDS: DOCUSATE SODIUM 10 MG/ML (10ML CUP) NGT ×2 (10:05→20:13)
[2017-07-09] MEDS: HEPARIN 5,000 UNIT/0.5 ML VIAL SC ×2 (10:21→20:57)
[2017-07-09] MEDS: LEVETIRACETAM 1500 MG (PMX) 100 ML IVPB ×2 (10:57→20:13)
[2017-07-09] MEDS: CEFEPIME 1GM/50 ML (PMX) 50 ML IVPB (14:00)
[2017-07-09] MEDS: ACETAMINOPHEN 325 MG TAB PO (20:13)
[2017-07-09] MEDS: INSULIN GLARGINE [LANtus] 3 ML PEN SC (20:20)
[2017-07-10] MEDS: METOCLOPRAMIDE 10 MG INJ IV ×4 (00:12→17:26)
[2017-07-10] MEDS: ACCU-CHEK XX ×6 (00:16→20:48)
[2017-07-10] MEDS: INSULIN ASPART [NOVOLOG] 3 ML PEN SC ×6 (00:16→20:48)
[2017-07-10 05:14] LABS: ADD MAN DIFF? NO
[2017-07-10 05:24] LABS: ABNORMAL IP MESSAGE 1; BASOPHILS % 0.3 % (0.0-2.0); EOSINOPHILS # 0.4 10^3/ul (0.0-0.5); EOSINOPHILS % 3.6 % (0.0-7.0); HEMATOCRIT 26.7 % (37.0-47.0); HEMOGLOBIN 8.2 g/dl (12.0-16.0); LYMPHOCYTES # 0.4 10^3/ul (0.8-2.9); LYMPHOCYTES % 3.7 % (15.0-51.0); MEAN CORPUSCULAR HEMOGLOBIN 26.3 pg (29.0-33.0); MEAN CORPUSCULAR HGB CONC 30.7 g/dl (32.0-37.0); MEAN CORPUSCULAR VOLUME 85.6 fl (82.0-101.0); MEAN PLATELET VOLUME 12.6 fl (7.4-10.4); MONOCYTE # 0.8 10^3/ul (0.3-0.9); MONOCYTES % 7.1 % (0.0-11.0); NEUTROPHIL # 9.9 10^3/ul (1.6-7.5); NEUTROPHILS % 84.2 % (39.0-77.0); PLATELET COUNT 217 10^3/UL (140-415); RED BLOOD COUNT 3.12 10^6/ul (4.20-5.40); RED CELL DISTRIBUTION WIDTH 18.2 % (11.5-14.5)
[2017-07-10 05:24] LABS: WHITE BLOOD COUNT 11.8 10^3/ul (4.8-10.8)
[2017-07-10 05:27] LABS: POSITIVE DIFF @See below
[2017-07-10 06:59] LABS: ANION GAP 20 (8-16); BLOOD UREA NITROGEN 55 mg/dl (7-20); CALCIUM 8.4 mg/dl (8.4-10.2); CARBON DIOXIDE 25 mmol/L (21-31); CHLORIDE 97 mmol/L (97-110); CREATININE 5.27 mg/dl (0.44-1.00); GLUCOSE 59 mg/dl (70-220); MAGNESIUM 2.6 mg/dl (1.7-2.5); PHOSPHORUS 4.7 mg/dl (2.5-4.9); POTASSIUM 4.2 mmol/L (3.5-5.1); SODIUM 138 mmol/L (135-144)
[2017-07-10] MEDS: DEXTROSE 50% 50 ML SYRINGE IV (08:19)
[2017-07-10] MEDS: SEVELAMER CARBONATE 2.4 GM PKT PO ×3 (08:58→17:26)
[2017-07-10] MEDS: LEVETIRACETAM 1500 MG (PMX) 100 ML IVPB ×2 (08:58→20:44)
[2017-07-10] MEDS: PHENYTOIN (100 MG/4 ML) CUP NGT ×4 (08:58→20:44)
[2017-07-10] MEDS: VALPROIC ACID LIQUID CUP 250 MG/5 ML CUP GTB ×3 (08:58→20:44)
[2017-07-10] MEDS: FAMOTIDINE 20 MG TAB NGT (08:58)
[2017-07-10] MEDS: DOCUSATE SODIUM 10 MG/ML (10ML CUP) NGT ×2 (08:59→20:44)
[2017-07-10] MEDS: ASPIRIN 81 MG TAB PO (08:59)
[2017-07-10] MEDS: HEPARIN 5,000 UNIT/0.5 ML VIAL SC ×2 (09:01→20:48)
[2017-07-10] MEDS ORDERED: FOSPHENYTOIN (PE) 1,000 MG in SOD CHLORIDE 0.9% 80 ML IVPB (10:30)
[2017-07-10] MEDS: PHENYTOIN 1,000 MG in SOD CHLORIDE 0.9% 100 ML IV (11:29)
[2017-07-10] MEDS: LINAGLIPTIN 5 MG TABLET PO ×2 (12:31→13:54)
[2017-07-10] MEDS ORDERED: ATROPINE 1 MG/10 ML SYRINGE (12:35)
[2017-07-10] MEDS ORDERED: ATROPINE 1 MG/10 ML SYRINGE IV (13:00)
[2017-07-10] MEDS: CEFEPIME 1GM/50 ML (PMX) 50 ML IVPB (13:51)
[2017-07-10] MEDS: HYDROCODONE/APAP (5/325) TAB PO (14:36)
[2017-07-10] MEDS: INSULIN GLARGINE [LANtus] 3 ML PEN SC (20:47)
[2017-07-10] MEDS: BALSAM PERU/CASTOR OIL 60 GM TUBE TOP (20:48)
[2017-07-11] MEDS: METOCLOPRAMIDE 10 MG INJ IV ×4 (00:47→17:44)
[2017-07-11] MEDS: INSULIN ASPART [NOVOLOG] 3 ML PEN SC ×6 (00:48→20:48)
[2017-07-11] MEDS: ACCU-CHEK XX ×6 (00:48→20:58)
[2017-07-11 06:04] LABS: ADD MAN DIFF? NO
[2017-07-11 06:09] LABS: ABNORMAL IP MESSAGE 1; BASOPHIL # 0.1 10^3/ul (0.0-0.1); BASOPHILS % 0.5 % (0.0-2.0); EOSINOPHILS # 0.4 10^3/ul (0.0-0.5); EOSINOPHILS % 3.7 % (0.0-7.0); HEMOGLOBIN 8.3 g/dl (12.0-16.0); LYMPHOCYTES # 0.4 10^3/ul (0.8-2.9); LYMPHOCYTES % 3.3 % (15.0-51.0); MEAN CORPUSCULAR HEMOGLOBIN 27.3 pg (29.0-33.0); MEAN CORPUSCULAR HGB CONC 31.9 g/dl (32.0-37.0); MEAN CORPUSCULAR VOLUME 85.5 fl (82.0-101.0); MEAN PLATELET VOLUME 13.4 fl (7.4-10.4); MONOCYTE # 0.9 10^3/ul (0.3-0.9); MONOCYTES % 8.6 % (0.0-11.0); NEUTROPHIL # 8.9 10^3/ul (1.6-7.5); NEUTROPHILS % 81.9 % (39.0-77.0); PLATELET COUNT 239 10^3/UL (140-415); RED BLOOD COUNT 3.04 10^6/ul (4.20-5.40); RED CELL DISTRIBUTION WIDTH 18.4 % (11.5-14.5)
[2017-07-11 06:09] LABS: WHITE BLOOD COUNT 10.9 10^3/ul (4.8-10.8)
[2017-07-11 06:24] LABS: POSITIVE DIFF @See below
[2017-07-11 06:40] LABS: ANION GAP 21 (8-16); BLOOD UREA NITROGEN 66 mg/dl (7-20); CALCIUM 8.5 mg/dl (8.4-10.2); CARBON DIOXIDE 24 mmol/L (21-31); CHLORIDE 93 mmol/L (97-110); CREATININE 6.06 mg/dl (0.44-1.00); GLUCOSE 133 mg/dl (70-220); MAGNESIUM 2.7 mg/dl (1.7-2.5); PHOSPHORUS 4.8 mg/dl (2.5-4.9); POTASSIUM 4.5 mmol/L (3.5-5.1); SODIUM 133 mmol/L (135-144)
[2017-07-11] MEDS: SEVELAMER CARBONATE 2.4 GM PKT PO ×3 (07:34→17:44)
[2017-07-11] MEDS: BALSAM PERU/CASTOR OIL 60 GM TUBE TOP ×2 (09:00→20:57)
[2017-07-11] MEDS: VALPROIC ACID LIQUID CUP 250 MG/5 ML CUP GTB ×3 (10:28→20:40)
[2017-07-11] MEDS: DOCUSATE SODIUM 10 MG/ML (10ML CUP) NGT ×2 (10:28→20:41)
[2017-07-11] MEDS: PHENYTOIN (100 MG/4 ML) CUP NGT ×4 (10:28→20:41)
[2017-07-11] MEDS: LINAGLIPTIN 5 MG TABLET PO (10:29)
[2017-07-11] MEDS: FAMOTIDINE 20 MG TAB NGT (10:29)
[2017-07-11] MEDS: ASPIRIN 81 MG TAB PO (10:29)
[2017-07-11] MEDS: LEVETIRACETAM 1500 MG (PMX) 100 ML IVPB ×2 (10:30→20:49)
[2017-07-11] MEDS: HEPARIN 5,000 UNIT/0.5 ML VIAL SC ×2 (10:43→20:48)
[2017-07-11] MEDS: CEFEPIME 1GM/50 ML (PMX) 50 ML IVPB (14:48)
[2017-07-11] MEDS: ALBUTEROL HFA 8 GM INHALER INH (15:23)
[2017-07-11] MEDS: INSULIN GLARGINE [LANtus] 3 ML PEN SC (20:48)
[2017-07-12] MEDS: METOCLOPRAMIDE 10 MG INJ IV ×4 (00:20→13:55)
[2017-07-12] MEDS: INSULIN ASPART [NOVOLOG] 3 ML PEN SC ×4 (00:23→13:00)
[2017-07-12] MEDS: ACCU-CHEK XX ×4 (01:00→13:00)
[2017-07-12] MEDS: ALBUMIN HUMAN 25% 100 ML IV (02:12)
[2017-07-12 07:02] LABS: ADD MAN DIFF? NO
[2017-07-12 07:05] LABS: WHITE BLOOD COUNT 10.8 10^3/ul (4.8-10.8)
[2017-07-12 07:05] LABS: ABNORMAL IP MESSAGE 1; BASOPHILS % 0.4 % (0.0-2.0); EOSINOPHILS # 0.3 10^3/ul (0.0-0.5); EOSINOPHILS % 3.1 % (0.0-7.0); HEMATOCRIT 27.5 % (37.0-47.0); HEMOGLOBIN 8.6 g/dl (12.0-16.0); LYMPHOCYTES # 0.3 10^3/ul (0.8-2.9); LYMPHOCYTES % 2.8 % (15.0-51.0); MEAN CORPUSCULAR HGB CONC 31.3 g/dl (32.0-37.0); MEAN CORPUSCULAR VOLUME 86.5 fl (82.0-101.0); MEAN PLATELET VOLUME 13.6 fl (7.4-10.4); MONOCYTE # 1.2 10^3/ul (0.3-0.9); MONOCYTES % 10.7 % (0.0-11.0); NEUTROPHIL # 8.6 10^3/ul (1.6-7.5); NEUTROPHILS % 79.5 % (39.0-77.0); PLATELET COUNT 264 10^3/UL (140-415); RED BLOOD COUNT 3.18 10^6/ul (4.20-5.40); RED CELL DISTRIBUTION WIDTH 18.5 % (11.5-14.5)
[2017-07-12 07:10] LABS: POSITIVE DIFF @See below
[2017-07-12 07:27] LABS: ANION GAP 18 (8-16); BLOOD UREA NITROGEN 35 mg/dl (7-20); CALCIUM 8.8 mg/dl (8.4-10.2); CARBON DIOXIDE 28 mmol/L (21-31); CHLORIDE 95 mmol/L (97-110); CREATININE 3.35 mg/dl (0.44-1.00); GLUCOSE 95 mg/dl (70-220); MAGNESIUM 2.4 mg/dl (1.7-2.5); PHOSPHORUS 2.6 mg/dl (2.5-4.9); POTASSIUM 3.3 mmol/L (3.5-5.1); SODIUM 138 mmol/L (135-144)
[2017-07-12] MEDS: SEVELAMER CARBONATE 2.4 GM PKT PO ×3 (07:35→12:18)
[2017-07-12 08:26] LABS: AADO2 Arterial 77.4 mmHg (7.0-24.0); Allen Test ACCEPTAB; Arterial Base Excess 1.3 mmol/L (-3.0-3); Arterial Blood Gas Oxygen Sat 96.5 mmHG (95.0-98.0); Arterial COHb 1.4 % (0.0-3.0); Arterial Fraction of Oxyhgb 94.9 % (93.0-99.0); Arterial HCO3 25.5 mmol/L (22.0-26.0); Arterial MetHb 0.3 % (0.0-1.5); Arterial Total Hemglobin 8.9 g/dl (12.0-18.0); Arterial pCO2 38.3 mmhg (35-45); MODE VENT - AC; Site Right Radial
[2017-07-12] MEDS: PHENYTOIN (100 MG/4 ML) CUP NGT ×4 (09:56→20:34)
[2017-07-12] MEDS: FAMOTIDINE 20 MG TAB NGT (09:57)
[2017-07-12] MEDS: VALPROIC ACID LIQUID CUP 250 MG/5 ML CUP GTB ×3 (09:57→20:34)
[2017-07-12] MEDS: DOCUSATE SODIUM 10 MG/ML (10ML CUP) NGT (09:57)
[2017-07-12] MEDS: LINAGLIPTIN 5 MG TABLET PO (09:57)
[2017-07-12] MEDS: ASPIRIN 81 MG TAB PO (09:57)
[2017-07-12] MEDS: LEVETIRACETAM 1500 MG (PMX) 100 ML IVPB ×2 (09:59→20:34)
[2017-07-12] MEDS: HEPARIN 5,000 UNIT/0.5 ML VIAL SC (10:14)
[2017-07-12] MEDS: BALSAM PERU/CASTOR OIL 60 GM TUBE TOP ×2 (10:31→21:03)
[2017-07-13] MEDS: LORAZEPAM 0.5 MG TAB PO (05:16)
[2017-07-13] MEDS: LEVETIRACETAM 1500 MG (PMX) 100 ML IVPB (09:40)
[2017-07-13] MEDS: BALSAM PERU/CASTOR OIL 60 GM TUBE TOP (09:41)
[2017-07-13] MEDS: PHENYTOIN (100 MG/4 ML) CUP NGT (09:41)
[2017-07-13] MEDS: VALPROIC ACID LIQUID CUP 250 MG/5 ML CUP GTB (09:41)
[2017-07-13] MEDS: FAMOTIDINE 20 MG TAB NGT (09:41)
[2017-07-13] MEDS: morphine (DRIP) 100 MG/100 ML 100 ML IV (11:40)
[2017-07-13] MEDS ORDERED: ARTIFICIAL TEARS 15 ML OPH BOTH EYES (12:00)
== END 2017-07-13 16:58 | disposition expired | DRG 207 ==
LOC: ICU 07-09 06:00 → E/R 11:50 → MS4 14:36 → ICU 23:35
PROC: 5A1955Z Respiratory Ventilation, Greater than 96 Consecutive Hours (ICD-10-PCS; principal; 2017-07-04)
PROC: 0BH17EZ Insertion of Endotracheal Airway into Trachea, Via Natural or Artificial Opening (ICD-10-PCS; 2017-07-04)
PROC: 5A1D70Z Performance of Urinary Filtration, Intermittent, Less than 6 Hours Per Day (ICD-10-PCS; 2017-07-06)
DX: J18.9 Pneumonia, unspecified organism (principal); N18.6 End stage renal disease; J96.00 Acute respiratory failure, unspecified whether with hypoxia or hypercapnia; J91.8 Pleural effusion in other conditions classified elsewhere; C85.90 Non-Hodgkin lymphoma, unspecified, unspecified site; C18.9 Malignant neoplasm of colon, unspecified; E87.2 Acidosis; G93.1 Anoxic brain damage, not elsewhere classified; R57.9 Shock, unspecified; G40.911 Epilepsy, unspecified, intractable, with status epilepticus; I12.0 Hypertensive chronic kidney disease with stage 5 chronic kidney disease or end stage renal disease; I42.9 Cardiomyopathy, unspecified; I46.9 Cardiac arrest, cause unspecified; E11.42 Type 2 diabetes mellitus with diabetic polyneuropathy; E11.3593 Type 2 diabetes mellitus with proliferative diabetic retinopathy without macular edema, bilateral; D63.1 Anemia in chronic kidney disease; G25.3 Myoclonus; E87.5 Hyperkalemia; I35.0 Nonrheumatic aortic (valve) stenosis; R19.03 Right lower quadrant abdominal swelling, mass and lump; I48.91 Unspecified atrial fibrillation
CPT/HCPCS: 31500; 36415; 36430; 36600; 70450; 70551; 71045; 74176; 80048; 80053; 80185; 82310; 82378; 82803; 82962; 83605; 83690; 83735; 84100; 84436; 84443; 84479; 84484; 85025; 85610; 85651; 85730; 86706; 86850; 86900; 86901; 86920; 87040; 87070; 87081; 87340; 90935; 92950; 93005; 93306; 94002; 94003; 94640; 94664; 94770; 95819; 96374; 96375; 99285-25